=== PATIENT | male | born 1965 | race Caucasian/White ===

== ENCOUNTER 2021-10-17 10:55 | Inpatient (IN) ==
[2021-10-17 11:22] LABS: Albumin 3.2 g/dL (3.2-5.2); Potassium 4.8 mmol/L (3.5-5.0); Total Bilirubin 0.3 mg/dL (0.2-1.0)
[2021-10-17 11:28] LABS: Albumin/Globulin Ratio 0.7 (1-3); Globulin 4.4 g/dL (2-4); Total Protein 7.6 g/dL (6.4-8.9); eGFR CKD-EPI 110.3 (>60)
[2021-10-17 11:37] LABS: Hematocrit 17 % (42-52); Hemoglobin 5.2 g/dL (14.0-18.0); Mean Corpuscular HGB Conc 31 g/dL (31-36); Mean Corpuscular Hemoglobin 24 pg (27-31); Mean Corpuscular Volume 78 fL (80-94); Mean Platelet Volume 6.9 fL (7.4-10.4); Platelet Count 359 10^3/uL (150-450); Red Blood Count 2.13 10^6 /uL (4.18-5.48); Red Cell Distribution Width 23 % (10-15); White Blood Count 7.3 10^3/uL (3.5-10.8)
[2021-10-17 12:33] LABS: ABS Lymphocytes 0.4 10^3/ul (1.0-4.8); ABS Monocytes 0.4 10^3/ul (0-0.8); ABS Neutrophils 6.6 10^3/ul (1.5-7.7); ABS Nucleated RBC 0.2 10^3/ul; Anisocytosis 3+; Eosinophil % 0.2 %; Hypochromasia 2+; Lymphocyte % 5.3 %; Microcytosis 1+; Nucleated Red Blood Cells % 2.9
[2021-10-17 12:34] LABS: Polychromasia 1+
[2021-10-17] MEDS ORDERED: Calcium Carb (TUMS) 500 mg CHEW TAB PO SCH (21:00)
[2021-10-17] MEDS: Calcium Carb (TUMS) 500 mg CHEW TAB PO PRN (21:10)
[2021-10-17] MEDS: Enoxaparin 40 MG/0.4 ML SYR SUBCUT SCH (21:11)
[2021-10-18 05:13] LABS: Hematocrit 22 % (42-52); Mean Corpuscular HGB Conc 32 g/dL (31-36); Mean Corpuscular Hemoglobin 25 pg (27-31); Mean Corpuscular Volume 77 fL (80-94); Mean Platelet Volume 6.7 fL (7.4-10.4); Platelet Count 325 10^3/uL (150-450); Red Blood Count 2.81 10^6 /uL (4.18-5.48); Red Cell Distribution Width 20 % (10-15); White Blood Count 7.9 10^3/uL (3.5-10.8)
[2021-10-18 05:54] LABS: Albumin 3.1 g/dL (3.2-5.2); Albumin/Globulin Ratio 0.8 (1-3); Calcium 8.6 mg/dL (8.6-10.3); Globulin 3.7 g/dL (2-4); Potassium 4.7 mmol/L (3.5-5.0); Total Bilirubin 0.5 mg/dL (0.2-1.0); Total Protein 6.8 g/dL (6.4-8.9); eGFR CKD-EPI 111.3 (>60)
[2021-10-18 06:03] LABS: Anisocytosis 1+; Microcytosis 1+
[2021-10-18 06:04] LABS: Polychromasia 1+
[2021-10-18 06:05] LABS: ABS Lymphocytes 0.5 10^3/ul (1.0-4.8); ABS Monocytes 0.5 10^3/ul (0-0.8); ABS Neutrophils 6.9 10^3/ul (1.5-7.7); ABS Nucleated RBC 0.2 10^3/ul; Basophilic Stippling 1+; Eosinophil % 0.1 %; Lymphocyte % 6.3 %; Nucleated Red Blood Cells % 2.1
[2021-10-18] MEDS ORDERED: HYDROmorphone 1 MG/1 ML SYRINGE IV SLOW PU PRN (08:40)
[2021-10-18] MEDS: HYDROmorphone 1 MG/1 ML SYRINGE IV SLOW PU PRN ×4 (09:24→22:25)
[2021-10-18] MEDS: Aspirin EC 81 mg TAB.EC (enteric coated) PO SCH (10:23)
[2021-10-18 10:55] LABS: Corrected Retic Count 2.1 % (0.5-1.5); Hematocrit for Retic CNT 22 % (42-52); Immature Retic Fraction 0.47; RBC Retic Count 2.79 10^6/uL (4.18-5.48)
[2021-10-18 14:05] LABS: Ferritin 4094.8 ng/mL (24-336)
[2021-10-18] MEDS: Enoxaparin 40 MG/0.4 ML SYR SUBCUT SCH (21:17)
[2021-10-19] MEDS: HYDROmorphone 1 MG/1 ML SYRINGE IV SLOW PU PRN ×4 (05:33→17:21)
[2021-10-19 05:52] LABS: Hematocrit 23 % (42-52); Hemoglobin 7.6 g/dL (14.0-18.0); Mean Corpuscular HGB Conc 33 g/dL (31-36); Mean Corpuscular Hemoglobin 26 pg (27-31); Mean Corpuscular Volume 78 fL (80-94); Mean Platelet Volume 6.5 fL (7.4-10.4); Platelet Count 322 10^3/uL (150-450); Red Blood Count 2.94 10^6 /uL (4.18-5.48); Red Cell Distribution Width 21 % (10-15); White Blood Count 8.3 10^3/uL (3.5-10.8)
[2021-10-19 06:31] LABS: Albumin 3.3 g/dL (3.2-5.2); Albumin/Globulin Ratio 0.8 (1-3); Calcium 8.6 mg/dL (8.6-10.3); Globulin 3.9 g/dL (2-4); Potassium 4.6 mmol/L (3.5-5.0); Total Bilirubin 0.5 mg/dL (0.2-1.0); Total Protein 7.2 g/dL (6.4-8.9); eGFR CKD-EPI 114.2 (>60)
[2021-10-19 07:24] LABS: ABS Lymphocytes 0.4 10^3/ul (1.0-4.8); ABS Monocytes 0.5 10^3/ul (0-0.8); ABS Neutrophils 7.3 10^3/ul (1.5-7.7); ABS Nucleated RBC 0.1 10^3/ul; Eosinophil % 0.1 %; Lymphocyte % 4.5 %
[2021-10-19] MEDS: Aspirin EC 81 mg TAB.EC (enteric coated) PO SCH (09:43)
[2021-10-19] MEDS: Calcium Carb (TUMS) 500 mg CHEW TAB PO PRN (19:34)
[2021-10-19] MEDS: Enoxaparin 40 MG/0.4 ML SYR SUBCUT SCH (22:00)
[2021-10-20 05:33] LABS: Hematocrit 23 % (42-52); Hemoglobin 7.5 g/dL (14.0-18.0); Mean Corpuscular HGB Conc 33 g/dL (31-36); Mean Corpuscular Hemoglobin 26 pg (27-31); Mean Corpuscular Volume 78 fL (80-94); Mean Platelet Volume 6.7 fL (7.4-10.4); Platelet Count 284 10^3/uL (150-450); Red Blood Count 2.93 10^6 /uL (4.18-5.48); Red Cell Distribution Width 22 % (10-15); White Blood Count 7.6 10^3/uL (3.5-10.8)
[2021-10-20 05:38] LABS: ABS Lymphocytes 0.4 10^3/ul (1.0-4.8); ABS Monocytes 0.5 10^3/ul (0-0.8); ABS Neutrophils 6.7 10^3/ul (1.5-7.7); Eosinophil % 0.2 %; Lymphocyte % 5.1 %; Nucleated Red Blood Cells % 0.3
[2021-10-20 06:13] LABS: Calcium 8.8 mg/dL (8.6-10.3); Potassium 4.6 mmol/L (3.5-5.0); eGFR CKD-EPI 119.7 (>60)
[2021-10-20] MEDS: Aspirin EC 81 mg TAB.EC (enteric coated) PO SCH (08:26)
[2021-10-20] MEDS: HYDROmorphone 1 MG/1 ML SYRINGE IV SLOW PU PRN ×2 (08:28→21:22)
[2021-10-20] MEDS: Enoxaparin 40 MG/0.4 ML SYR SUBCUT SCH (20:26)
[2021-10-21] MEDS: HYDROmorphone 1 MG/1 ML SYRINGE IV SLOW PU PRN (03:25)
[2021-10-21] MEDS: Aspirin EC 81 mg TAB.EC (enteric coated) PO SCH (09:04)
[2021-10-21 12:45] VITALS: BP 146/79
== END 2021-10-21 14:00 | disposition home or self-care (01) | DRG 500 ==
LOC: CHOA 10:55 → MEDTELE 16:16
PROVIDERS: ADMIT Internal Medicine Medical Oncology; ATTEND Internal Medicine Medical Oncology

== ENCOUNTER 2021-11-13 16:54 | Inpatient (IN) ==
[2021-11-13 19:15] LABS: Hematocrit 22 % (42-52); Hemoglobin 7.1 g/dL (14.0-18.0); Mean Corpuscular HGB Conc 32 g/dL (31-36); Mean Corpuscular Hemoglobin 28 pg (27-31); Mean Corpuscular Volume 86 fL (80-94); Mean Platelet Volume 6.8 fL (7.4-10.4); Platelet Count 110 10^3/uL (150-450); Red Blood Count 2.57 10^6 /uL (4.18-5.48); Red Cell Distribution Width 25 % (10-15); White Blood Count 10.5 10^3/uL (3.5-10.8)
[2021-11-13] MEDS ORDERED: Morphine 4 MG/ML VIAL (1 ml) IV SCH (20:00)
[2021-11-13 20:20] LABS: Albumin 3.4 g/dL (3.2-5.2); Albumin/Globulin Ratio 1.2 (1-3); Calcium 8.5 mg/dL (8.6-10.3); Globulin 2.9 g/dL (2-4); Potassium 3.9 mmol/L (3.5-5.0); Total Bilirubin 0.4 mg/dL (0.2-1.0); Total Protein 6.3 g/dL (6.4-8.9); eGFR CKD-EPI 109.2 (>60)
[2021-11-13 20:24] LABS: Anisocytosis 2+
[2021-11-13 20:25] LABS: Basophilic Stippling 1+; Polychromasia 1+
[2021-11-13 20:26] LABS: ABS Lymphocytes 0.6 10^3/ul (1.0-4.8); ABS Monocytes 0.6 10^3/ul (0-0.8); ABS Neutrophils 9.3 10^3/ul (1.5-7.7); ABS Nucleated RBC 0.1 10^3/ul; Eosinophil % 0.1 %; Lymphocyte % 5.5 %; Nucleated Red Blood Cells % 0.7
[2021-11-13] MEDS ORDERED: Morphine 4 MG/ML VIAL (1 ml) IV PRN (21:49)
[2021-11-13] MEDS ORDERED: Enoxaparin 40 MG/0.4 ML SYR SUBCUT SCH (22:00)
[2021-11-13] MEDS ORDERED: Dextrose 50% Syringe 50 ml 25 GM/50 ML SYRINGE IV PUSH PRN (22:08)
[2021-11-14 05:55] LABS: Hematocrit 18 % (42-52); Hemoglobin 5.9 g/dL (14.0-18.0); Mean Corpuscular HGB Conc 33 g/dL (31-36); Mean Corpuscular Hemoglobin 28 pg (27-31); Mean Corpuscular Volume 85 fL (80-94); Mean Platelet Volume 7.3 fL (7.4-10.4); Platelet Count 106 10^3/uL (150-450); Red Blood Count 2.11 10^6 /uL (4.18-5.48); Red Cell Distribution Width 26 % (10-15); White Blood Count 11.1 10^3/uL (3.5-10.8)
[2021-11-14 05:56] LABS: ABS Lymphocytes 0.4 10^3/ul (1.0-4.8); ABS Monocytes 0.7 10^3/ul (0-0.8); ABS Nucleated RBC 0.1 10^3/ul; Eosinophil % 0.1 %; Lymphocyte % 3.4 %; Nucleated Red Blood Cells % 0.7
[2021-11-14 06:02] LABS: Calcium 7.9 mg/dL (8.6-10.3); Potassium 3.8 mmol/L (3.5-5.0); eGFR CKD-EPI 111.9 (>60)
[2021-11-14 07:19] LABS: Polychromasia 2+
[2021-11-14 07:20] LABS: Basophilic Stippling 1+
[2021-11-14] MEDS: Aspirin EC 81 mg TAB.EC (enteric coated) PO SCH (07:57)
[2021-11-14] MEDS: Cholecalciferol (VIT D3) 1,000 unit TAB PO SCH (07:58)
[2021-11-14 15:42] LABS: Hematocrit 22 % (42-52); Hemoglobin 6.9 g/dL (14.0-18.0)
[2021-11-15] MEDS: Morphine 4 MG/ML VIAL (1 ml) IV PRN ×3 (00:38→20:19)
[2021-11-15 06:12] LABS: Hematocrit 19 % (42-52); Hemoglobin 6.4 g/dL (14.0-18.0); Mean Corpuscular HGB Conc 33 g/dL (31-36); Mean Corpuscular Hemoglobin 29 pg (27-31); Mean Corpuscular Volume 86 fL (80-94); Platelet Count 106 10^3/uL (150-450); Red Blood Count 2.25 10^6 /uL (4.18-5.48); Red Cell Distribution Width 23 % (10-15); White Blood Count 10.1 10^3/uL (3.5-10.8)
[2021-11-15 06:26] LABS: ABS Lymphocytes 0.4 10^3/ul (1.0-4.8); ABS Monocytes 0.5 10^3/ul (0-0.8); ABS Neutrophils 9.2 10^3/ul (1.5-7.7); Eosinophil % 0.1 %; Lymphocyte % 3.6 %; Nucleated Red Blood Cells % 0.2
[2021-11-15 06:37] LABS: Calcium 8.1 mg/dL (8.6-10.3); eGFR CKD-EPI 112.5 (>60)
[2021-11-15] MEDS: Aspirin EC 81 mg TAB.EC (enteric coated) PO SCH (08:28)
[2021-11-15] MEDS: Cholecalciferol (VIT D3) 1,000 unit TAB PO SCH (08:30)
[2021-11-15] MEDS ORDERED: Darbepoetin Alfa Albumen Free 500 MCG/ML SYRINGE SUBCUT ONE (11:00)
[2021-11-15 14:02] LABS: Hematocrit 24 % (42-52); Hemoglobin 7.6 g/dL (14.0-18.0)
[2021-11-15] MEDS: Lactulose 30 ml UDC PO PRN (18:42)
[2021-11-16] MEDS: Morphine 4 MG/ML VIAL (1 ml) IV PRN ×3 (02:59→23:08)
[2021-11-16] MEDS: Lactulose 30 ml UDC PO PRN (04:25)
[2021-11-16 06:17] LABS: Hematocrit 23 % (42-52); Hemoglobin 7.4 g/dL (14.0-18.0); Mean Corpuscular HGB Conc 32 g/dL (31-36); Mean Corpuscular Hemoglobin 28 pg (27-31); Mean Corpuscular Volume 89 fL (80-94); Mean Platelet Volume 7.4 fL (7.4-10.4); Platelet Count 108 10^3/uL (150-450); Red Cell Distribution Width 23 % (10-15); White Blood Count 9.6 10^3/uL (3.5-10.8)
[2021-11-16 06:58] LABS: Calcium 8.4 mg/dL (8.6-10.3); Potassium 4.3 mmol/L (3.5-5.0)
[2021-11-16 07:04] LABS: eGFR CKD-EPI 112.5 (>60)
[2021-11-16 09:22] LABS: ABS Lymphocytes 0.4 10^3/ul (1.0-4.8); ABS Monocytes 0.4 10^3/ul (0-0.8); ABS Neutrophils 8.7 10^3/ul (1.5-7.7); ABS Nucleated RBC 0.1 10^3/ul; Anisocytosis 2+; Eosinophil % 0.1 %; Lymphocyte % 4.1 %; Nucleated Red Blood Cells % 0.5
[2021-11-16] MEDS: Cholecalciferol (VIT D3) 1,000 unit TAB PO SCH (09:37)
[2021-11-16] MEDS: Aspirin EC 81 mg TAB.EC (enteric coated) PO SCH (09:38)
[2021-11-17] MEDS: Morphine 4 MG/ML VIAL (1 ml) IV PRN ×5 (04:02→19:43)
[2021-11-17 05:10] LABS: Hematocrit 24 % (42-52); Hemoglobin 7.7 g/dL (14.0-18.0); Mean Corpuscular HGB Conc 33 g/dL (31-36); Mean Corpuscular Hemoglobin 29 pg (27-31); Mean Corpuscular Volume 88 fL (80-94); Mean Platelet Volume 7.1 fL (7.4-10.4); Platelet Count 118 10^3/uL (150-450); Red Blood Count 2.68 10^6 /uL (4.18-5.48); Red Cell Distribution Width 23 % (10-15); White Blood Count 9.3 10^3/uL (3.5-10.8)
[2021-11-17 05:13] LABS: ABS Lymphocytes 0.4 10^3/ul (1.0-4.8); ABS Monocytes 0.4 10^3/ul (0-0.8); ABS Neutrophils 8.5 10^3/ul (1.5-7.7); Eosinophil % 0.2 %; Lymphocyte % 4.1 %; Nucleated Red Blood Cells % 0.5
[2021-11-17 05:41] LABS: Calcium 8.5 mg/dL (8.6-10.3); Potassium 4.5 mmol/L (3.5-5.0); eGFR CKD-EPI 116.2 (>60)
[2021-11-17 08:04] VITALS: BP 146/72
[2021-11-17] MEDS: Aspirin EC 81 mg TAB.EC (enteric coated) PO SCH (09:47)
[2021-11-17] MEDS: Cholecalciferol (VIT D3) 1,000 unit TAB PO SCH (09:48)
[2021-11-17 15:37] LABS: Urine Appearance Clear; Urine Bilirubin Negative (Negative); Urine Blood Negative (Negative); Urine Color Straw; Urine Glucose Negative (Negative); Urine Ketones Negative (Negative); Urine Nitrite Negative (Negative); Urine Protein Negative (Negative); Urine Specific Gravity 1.006 (1.002-1.030); Urine Urobilinogen Negative (Negative)
[2021-11-17] MEDS ORDERED: Lorazepam PYXIS KEY PRN (15:47)
[2021-11-17] MEDS: LORazepam 2 mg VIAL 1 ml IV PUSH PRN (20:27)
[2021-11-18] MEDS: Morphine 4 MG/ML VIAL (1 ml) IV PRN ×2 (05:08→08:30)
[2021-11-18] MEDS: Lactulose 30 ml UDC PO PRN (07:19)
[2021-11-18] MEDS: LORazepam 2 mg VIAL 1 ml IV PUSH PRN (08:30)
[2021-11-18 09:27] LABS: Rapid COVID-19 Molecular Undetected (Undetected)
== END 2021-11-18 08:50 | disposition hospice, home (50) | DRG 930 ==
LOC: ED 16:54 → SUATTDRO 21:21 → EDHOLD 21:21 → SSU 11-14 00:52
PROVIDERS: ADMIT Hospitalist; ATTEND Hospitalist